=== PATIENT | male | born 1945 | race Caucasian/White ===

== ENCOUNTER 2021-10-15 02:21 | Day surgery (SDC) | payer MEDICARE, BC, SELFPAY ==
--- NOTE | 2021-10-12 12:25 | PC.NURSE ---
Report to the Outpatient Waiting Room, entrance under the green pavilion located off [facility], at time _1030 on date __10/15/21 . OR Time: __1129 . - You and your visitor will be asked a series of questions to screen for COVID 19 for your protection. - A mask is required within the hospital. Preoperative COVID Testing Requirements: No COVID Test needed if: (proof is required; if not received patient will have Rapid Test prior to entry) - Patient has received COVID Vaccine at least 14 days prior to procedure date or - Patient has positive COVID test result within last 90 days of surgery date. COVID Test needed if above criteria is not met If not COVID vaccinated a COVID test must be conducted within 72 hours of surgery and patient is asked to isolate self from time of testing until procedure. You will go to the [facility] for your COVID testing. The [facility] is located at the corner of [address] [facility]. You will only be called if COVID results are positive and your surgeon may reschedule your elective surgery date. Patients may have clear liquids (water, carbonated beverages, clear teas, apple juice) until 3 hours prior to surgery with a maximum of 20 ounces. - No food from midnight until time of surgery *LIGHT BREAKFAST MORNING OF SURGERY* - Infants may have breast milk until 4 hours before surgery, formula 6 hours prior to surgery. - Children will be allowed to drink immediately following surgery. If applicable, please bring a bottle or sippy cup to assist with drinking. Juice, water, soda, and popsicles are readily available. For infants on formula, please bring formula the day of surgery. Pacifiers are allowed. Take the following medications with a SIP of water the morning of surgery: ____ALL ROUTINE AM MEDS Medications to discontinue per physician NONE Date to take last dose Please no make-up, nail croatian, hairspray, perfume, deodorant, or body powder the day of surgery. No jewelry (including any body piercings) or valuables the day of surgery, leave them at home. Please take a shower or bath the night before, or the morning of, surgery with an antibacterial soap. Wear comfortable, loose fitting clothing. Children are encouraged to wear pajamas. - Jewelry must be removed prior to entering the operating room. Rings and piercings that are not removed may be cut off. - The hospital will not accept responsibility for valuables. - Please leave all valuables, including medications, at home the day of surgery. If you are going home after surgery, a licensed route delivery driver must drive you home. LOCAL ANESTHESIA MAY DRIVE YOURSELF HOME - NO public transportation without another adult. - We recommend that an adult stay with you for 24 hours following discharge. - We also recommend that you do not drive, make important decision, drink alcoholic beverages, or take any drugs that were not prescribed by your health care provider for at least 24 hours after your discharge time. For Pediatric surgeries, we recommend two adults accompany the child home (only one inside the building at this time). One visitor will be allowed to accompany the patient into the hospital. Patients visitor will be instructed to remain with patient at all times or leave the building. We will allow the visitor to come back to the postoperative area when patient is ready. Follow any additional instructions given to you from your surgeon. Telephone instructions given to _PATIENT and asked if any additional questions and then verbalized understanding. Patient advised to call surgeon office or pre surgery nurse liaison [phone] if any additional questions.
[2021-10-12 12:27] VITALS: BMI 33.5
[2021-10-15] VITALS (25 sets, daily range): BP systolic 138–199; BP diastolic 61–86; PULSE 56–72; RESP 14–70; TEMP 36.5; O2SAT 94–100
--- NOTE | 2021-10-15 07:57 | WPDHPUPDATE1 ---
History and Physical Update Update Date/Time: 10/15/21 07:57 History and Physical has been reviewed, including an updated exam of the patient. There are NO changes in the patient's condition. Risks, benefits, and alternatives have been discussed and questions answered. Patient agrees to proceed with procedure.
[2021-10-15] MEDS: LIDO 1%/EPINEPHRINE 1:100,000 50 ML VIAL 10 ML INFILTRATE (12:44)
[2021-10-15] MEDS: BACITRACIN OINTMENT 15 GM TUBE 1 APPLIC TOPICAL (12:45)
--- NOTE | 2021-10-15 13:17 | SUR.OPER ---
Frozen section specimens x 3 sent with KAVITA Pollock and received in pathology by Aliza
--- NOTE | 2021-10-15 14:36 | SUR.OPER ---
Frozen section and permanent specimens sent with KAVITA Pollock and received in pathology by Aliza
--- NOTE | 2021-10-15 19:45 | W.PM.PROC2 ---
Procedure Note - Detailed Date of Procedure 10/15/21 Pre-op Diagnosis Basal Cell Ca Lt Pender and Post-op Diagnosis Same Procedure Performed 1.5 cm excision of basal cell carcinoma of the left root of the helix with frozen section and complex repair 2 cm 4 cm excision of full-thickness of the helix for removal of basal cell carcinoma of the left helix with multiple frozen sections and complex repair 5 cm Surgeon Denzel Short MD [employer] Janneth Anesthesia Local Indications Ulcerated neoplasms Findings Basal cell carcinoma Description of Procedure The 2 sites were marked on the patient's ear in the holding area. He was then taken to the operating room where he was placed supine on the operating table. He was positioned appropriately and the face and neck area were prepped and draped in usual fashion. A time-out was held and confirmed. The sites were marked once again for the preliminary excision. They were infiltrated with 1% lidocaine with epinephrine. From the root of the helix approximate 1 cm excision of skin was taken and sent for frozen section. The most superior aspect was marked with the suture for orientation. The pathologist reported that a margin was positive in the 3-6 o'clock area and we took a generous re-excision along that side. This included some slightly excoriated epithelial region. That specimen was sent for permanent section. This wound was closed in complex fashion with removal of a strip of cartilage that allowed closure of the skin margins along the curl of the helical root with some additional undermining and nylon sutures. Attention was turned to the larger lesion on the mid level of the lateral helix. This area had been marked to excise the obvious ulceration. In doing so we temporarily ignored some poorly demarcated but clearly identifiable expanded skin extending a cm in certain areas. The specimens were sent with orienting sutures. The pathologist reported that almost all areas were positive for tumor at the margins. We went ahead to outline and infiltrate and incise the area that visually appeared to be involved with expanding tumor. Several specimens were sent we finally got free margins except for the 12:00 o'clock area. This area was to be excised several mm at any rate to allow for contour improvement at that end. That tissue was sent to pathology for permanent section. Some additional tissue was removed during the closure and I did not send that. It just became too difficult to orient it. The closure of this wound required considerable undermining, more than 2 cm, posteriorly over the mastoid. It also involve excision of additional cartilage to improve contour at the cephalad and caudal ends of this fairly large excision. It also required undermining of skin on the anterior aspect to advance skin to cover all cartilage. This was somewhat more difficult at the cephalad until were able to accomplish closure where approximally a 3rd of the ear was now missing. There was no bleeding at the termination of this case. Site was cleaned up antibiotic ointment was applied to the sites and an ear cup with gauze bandage applied over that. Patient tolerated the procedure well other was blood pressure got to the 170 mm region and Anesthesia was asked to come in and comment on his condition and no further treatment regarding that was made at this time patient had not taken his blood pressure medicine in the morning and he was in the operating room for several hours. He was discharged from the operating room in stable condition. He is being discharged home with a prescription for cephalexin for 5 days and hydrocodone 5/325 5. Drains No Packing No Pathology Yes Complications No immediate complications Condition Stable Disposition Same day
== END 2021-10-15 17:08 | disposition home or self-care (01) ==
PROVIDERS: PCP Family Medicine; Visit Provider Plastic Surgery
PROC: (CPT 11642; principal; 2021-10-15 12:30)
DX: C44.219 Basal cell carcinoma of skin of left ear and external auricular canal (principal); Z85.46 Personal history of malignant neoplasm of prostate; Z85.038 Personal history of other malignant neoplasm of large intestine; Z79.84 Long term (current) use of oral hypoglycemic drugs; Z79.82 Long term (current) use of aspirin
CPT/HCPCS: 11642; 11644; 13152; 88304; 88305; 88331; 88332; A9270